=== PATIENT | female | born 1985 | race Caucasian/White ===

== ENCOUNTER 2016-11-11 11:40 | Emergency (ER) | payer OTHER | END 2016-11-11 13:11 | disposition home or self-care (01) | LOC: ER1 11:40 | DX: S30.0XXA Contusion of lower back and pelvis, initial encounter (principal); S79.912A Unspecified injury of left hip, initial encounter; V43.62XA Car passenger injured in collision with other type car in traffic accident, initial encounter | CPT/HCPCS: 73502; 99284 ==

== ENCOUNTER 2016-11-13 18:23 | Emergency (ER) | payer OTHER | END 2016-11-14 00:08 | disposition home or self-care (01) | LOC: ER1 18:23 | DX: S16.1XXA Strain of muscle, fascia and tendon at neck level, initial encounter (principal); S09.90XA Unspecified injury of head, initial encounter; V49.50XA Passenger injured in collision with unspecified motor vehicles in traffic accident, initial encounter | CPT/HCPCS: 70450; 72125; 81001; 84703; 99284 ==

== ENCOUNTER → 2021-12-01 | Outpatient (CLI) | payer OTHER ==
[~2021-12-01] MED LIST: TORADOL 10 MG T10 MG PO
[2021-12-02 07:10] LABS: VITAMIN D, 25-HYDROXY 38.5 ng/mL (30.0-100.0)
[2021-12-02 08:22] LABS: FSH 4.9 mIU/mL (.); LUTEINIZING HORMONE(LH) 2.9 mIU/mL (.)
[2021-12-02 09:12] LABS: PROLACTIN 4.3 ng/mL (4.8-23.3)
== END ==
LOC: LAB 12:18
PROVIDERS: Obstetrics & Gynecology
DX: R53.83 Other fatigue (principal); M54.9 Dorsalgia, unspecified
CPT/HCPCS: 36415; 83001; 83002; 84146; 84439; 84443; 84702